=== PATIENT | female | born 1985 | race Caucasian/White ===

== ENCOUNTER → 2021-02-01 | Outpatient (CLI) | payer SELFPAY ==
[~2021-02-01] MED LIST: IBU600 MG PO; PERCOCET 325 MG1 TA2 PO; PRENATAL TABLET PO; TUMS500 MG
== END ==
LOC: ZCOL.LAB 14:35
DX: Z20.822 Contact with and (suspected) exposure to COVID-19 (principal)

== ENCOUNTER 2021-02-06 09:58 | Inpatient (IN) | payer OTHER ==
[~2021-02-06] VITALS: Ht 170.2 cm; Wt 94.5 kg
[2021-02-06] VITALS (16 sets, daily range): BP systolic 74–136; BP diastolic 28–72; PULSE 69–86; TEMP 97.6–97.8
[2021-02-06] MEDS ORDERED: PRENATAL TABLET PO (10:38)
[2021-02-06] MEDS ORDERED: TUMS500 MG (10:38)
[2021-02-06 10:42] LABS: BASO % 0.3 % (0.0-2.0); EOS # 0.1 (0.0-0.7); EOS % 0.8 % (0-4.0); HEMATOCRIT 40.9 % (37.0-47.0); HEMOGLOBIN 13.9 g/dl (12.5-16.0); LYMPH # 2.1 (1.2-3.4); LYMPH % 26.4 % (20.0-51.0); MEAN CELL VOLUME 96 fl (80.0-100.0); MEAN CORPUSCULAR HEMOGLOBIN 33 pg (27.0-31.0); MEAN CORPUSCULAR HGB CONC 34 g/dl (33.0-37.0); MEAN PLATELET VOLUME 11.4 fl (7.4-10.4); MONO # 0.7 (0.1-0.6); PLATELET COUNT 218 K/mm3 (130-400); RED BLOOD COUNT 4.28 M/mm3 (4.10-5.30); REDCELL DISTRIBUTION WIDTH-CV 12.7 % (11.5-14.5)
[2021-02-07] VITALS: BP 106/71; PULSE 74
[2021-02-07 06:57] LABS: HEMOGLOBIN 11.9 g/dl (12.5-16.0)
[2021-02-07 07:00] VITALS: BP 123/74; PULSE 70; TEMP 97.9
--- NOTE | 2021-02-07 09:24 | NUR ---
Initial visit; Patient thanked Doors Prefitter for looking in on her and offering congratulations and God's blessings for the of her daughter.Doors Prefitter thanked patient for choosing our hospital.
[2021-02-07 12:40] VITALS: BP 112/68; PULSE 69; TEMP 98.2
[2021-02-07 16:15] VITALS: BP 118/71; PULSE 72; TEMP 97.4
[2021-02-07 21:00] VITALS: BP 121/72; PULSE 76; TEMP 97.5
[2021-02-08 07:00] VITALS: BP 117/69; PULSE 77; TEMP 97.7
[2021-02-08] MEDS ORDERED: PERCOCET 325 MG1 TA2 PO (09:43)
[2021-02-08] MEDS ORDERED: IBU600 MG PO (09:43)
--- NOTE | 2021-02-08 10:47 | NUR ---
DISCHARGE TEACHING COMPLETED. PATIENT EDUCATED ON FOLLOW UP APPOINTMENT AND PRESCRIPTIONS. QUESTIONS INVITED AND ANSWERED.
== END 2021-02-08 11:35 | disposition home or self-care (01) | DRG 788 ==
LOC: OB 09:58
PROVIDERS: ADMIT Obstetrics & Gynecology
PROC: 10D00Z1 Extraction of Products of Conception, Low, Open Approach (ICD-10-PCS; principal; 2021-02-08)
DX: O34.211 Maternal care for low transverse scar from previous cesarean delivery (principal); Z3A.39 39 weeks gestation of pregnancy; Z37.0 Single live birth; O99.824 Streptococcus B carrier state complicating childbirth; O99.344 Other mental disorders complicating childbirth; F41.9 Anxiety disorder, unspecified; F32.9 Major depressive disorder, single episode, unspecified
CPT/HCPCS: J0171; J0690; J1100; J1885; J2370; J2405; J2590; J7120

== ENCOUNTER 2023-06-06 09:39 | Emergency (ER) | payer OTHER ==
[~2023-06-06] VITALS: Ht 170.2 cm; Wt 68.2 kg
[2023-06-06 09:47] VITALS: BP 111/61; TEMP 98.9
[2023-06-06] MEDS ORDERED: Acetaminophen 500 MG TAB PO ONE (10:30)
[2023-06-06] MEDS ORDERED: AlOH3/diphen/Lidoc/MgOH2/Simet Oral Susp 10 ML UD Syringe PO ONE (10:30)
[2023-06-06] MEDS ORDERED: Ibuprofen 400 MG TAB PO ONE (10:30)
[2023-06-06] MEDS ORDERED: FIRST-MOUTHWASH1 KIT PO (11:43)
[2023-06-06] MEDS ORDERED: Penicillin G Benz 1,200,000 UNITS/2 ML SYRINGE IM ONE (11:45)
[2023-06-06 11:55] VITALS: PULSE 99
[2023-06-06] MEDS ORDERED: LIDOCAINE HC20 MG/M2 PO (16:04)
== END 2023-06-06 11:56 | disposition home or self-care (01) ==
LOC: COL.ER 09:39
DX: J03.00 Acute streptococcal tonsillitis, unspecified (principal)
CPT/HCPCS: J0561

== ENCOUNTER 2023-09-11 19:52 | Emergency (ER) | payer OTHER ==
[~2023-09-11] VITALS: Ht 170.2 cm; Wt 75.0 kg
[~2023-09-11 19:52] MED LIST changes: +FIRST-MOUTHWASH1 KIT PO; +LIDOCAINE HC20 MG/M2 PO
[2023-09-11 20:00] VITALS: TEMP 98.7
[2023-09-11] MEDS ORDERED: ALPRAZolam 0.5 MG TAB PO ONE (21:15)
[2023-09-11 22:15] VITALS: BP 128/71; PULSE 80
== END 2023-09-11 22:17 | disposition home or self-care (01) ==
LOC: COL.ER 19:52
DX: S01.81XA Laceration without foreign body of other part of head, initial encounter (principal); Z23 Encounter for immunization; W22.8XXA Striking against or struck by other objects, initial encounter; W22.09XA Striking against other stationary object, initial encounter

== ENCOUNTER 2023-09-16 10:04 | Emergency (ER) | payer OTHER ==
[~2023-09-16] VITALS: Ht 170.2 cm; Wt 72.7 kg
[2023-09-16 10:09] VITALS: TEMP 98.5
[2023-09-16] MEDS ORDERED: Morphine 4 MG/ML VIAL IV ONE (10:30)
[2023-09-16] MEDS ORDERED: Ondansetron 4 MG/2 ML VIAL IV ONE (10:30)
[2023-09-16] MEDS ORDERED: NS 1,000 ML IV ONE (10:30)
[2023-09-16 10:52] LABS: BASO # 0.1 K/mm3 (0.0-0.2); BASO % 0.6 % (0.0-2.0); EOS # 0.2 K/mm3 (0.0-0.7); GRAN % 66.8 % (42.2-75.2); HEMATOCRIT 39.9 % (37.0-47.0); HEMOGLOBIN 13.4 g/dl (12.5-16.0); LYMPH # 1.9 K/mm3 (1.2-3.4); LYMPH % 21.7 % (20.0-51.0); MEAN CELL VOLUME 100 fl (80.0-100.0); MEAN CORPUSCULAR HEMOGLOBIN 34 pg (27-31); MEAN CORPUSCULAR HGB CONC 34 g/dl (33.0-37.0); MEAN PLATELET VOLUME 9.6 fl (7.4-10.4); MONO # 0.8 K/mm3 (0.1-0.6); MONO % 8.7 % (1.7-9.3); PLATELET COUNT 268 K/mm3 (130-400); REDCELL DISTRIBUTION WIDTH-CV 12.9 % (11.5-14.5)
[2023-09-16 10:59] LABS: COLLECTION METHOD CLEAN CATCH
[2023-09-16 11:14] LABS: ALBUMIN 3.5 g/dL (3.5-5.0); BILIRUBIN,TOTAL 0.4 mg/dL (0.2-1.2); C-REACTIVE PROTEIN 1.61 mg/dL (0.00-0.50); CALCIUM 9.3 mg/dL (8.4-10.2); CREATININE, serum 0.75 mg/dL (0.57-1.11); POTASSIUM 3.8 mEq/L (3.5-4.5); TOTAL PROTEIN 7.1 g/dl (6.2-8.1)
[2023-09-16 11:16] LABS: PH 7.5 (5.0-8.5); URINE APPEARANCE CLEAR (CLEAR/HAZY); URINE BLOOD NEGATIVE (NEGATIVE); URINE COLOR YELLOW (YELLOW); URINE GLUCOSE NEGATIVE (NEGATIVE); URINE KETONE NEGATIVE (NEGATIVE); URINE NITRATE NEGATIVE (NEGATIVE); URINE PROTEIN(semi-quant) NEGATIVE (NEGATIVE); URINE UROBILINOGEN 0.2 E.U/dL (0.2-1.0)
[2023-09-16] MEDS ORDERED: Iohexol 300 - 100 ML VIAL IV ONE (11:54)
[2023-09-16] MEDS ORDERED: NS 100 ML IV SCH (11:56)
[2023-09-16] MEDS ORDERED: ZOFRAN ODT4 MG PO (13:07)
[2023-09-16 13:33] VITALS: BP 115/72; PULSE 80
== END 2023-09-16 13:36 | disposition home or self-care (01) ==
LOC: COL.ER 10:04
PROVIDERS: Nurse Practitioner
DX: R10.11 Right upper quadrant pain (principal); R11.2 Nausea with vomiting, unspecified
CPT/HCPCS: J2270; J2405; J7030; Q9967